=== PATIENT | male | born 1965 | race Caucasian/White ===

== ENCOUNTER → 2016-03-17 | Outpatient (CLI) | payer BC ==
--- NOTE | 2016-03-17 12:52 | CT ---
EXAMINATION TYPE: CT abdomen pelvis wo con DATE OF EXAM: 03/17/2016 12:29 PM COMPARISON: NONE HISTORY: Left sided flank pain with nausea and vomiting CT DLP: 367.7 mGycm Automated exposure control for dose reduction was used. TECHNIQUE: Helical acquisition of images from the lung bases through the pelvis. FINDINGS: LUNG BASES: No significant abnormality is appreciated. Small hiatal hernia may be present. AORTA: No significant abnormality is appreciated. LIVER/GB: No significant abnormality is appreciated. PANCREAS: No significant abnormality is seen. SPLEEN: No significant abnormality is seen. ADRENALS: No significant abnormality is seen. KIDNEYS: Right kidney shows a calcification at the anterior margin inferiorly which may be within a c eliseo measuring approximately 7 mm. There is no hydronephrosis on the right, on the left there is mild hydronephrosis as well as a proximal ureteral calculus measuring approximately 3 to 4 mm in diameter . REPRODUCTIVE ORGANS: No significant abnormality is seen. URINARY BLADDER: No significant abnormality is seen. BOWEL: Some minimal diverticular change, no bowel obstruction, the appendix is normal FREE AIR: No Free Air is visible. ASCITES: None visible. PELVIC ADENOPATHY: None visualized. RETROPERITONEAL ADENOPATHY: No Retroperitoneal Adenopathy visible. OSSEOUS STRUCTURES: Degenerative disc changes are present in the visualized lumbar spine, postop molly nge status post lumbar fusion L5-S1. IMPRESSION: PROXIMAL LEFT URETERAL CALCULUS WITH MILD HYDRONEPHROSIS. NONOBSTRUCTIVE RIGHT NEPHROLITHIASIS. NONCO NTRAST EXAM COULD LIMIT SENSITIVITY.
[2016-03-17 13:18] LABS: Appearance,Urine Clear (Clear); Bacteria,Urine Rare /hpf; Bilirubin,Urine Negative (Negative); Glucose,Urine (UA) Negative (Negative); Ketones,Urine Negative (Negative); Leukocyte Esterase,Urine Negative (Negative); Mucus,Urine Occasional /hpf; Nitrite,Urine Negative (Negative); PH, Urine 5.5 (5.0-8.0); Particle Count 2844; Protein,Urine Negative (Negative); RBC,Urine 1 /hpf (0-5); UA Billing (MACRO vs. MICRO) MICRO; Urobilinogen,Urine <2.0 mg/dL (<2.0); WBC,Urine 1 /hpf (0-5)
== END | disposition home or self-care (01) ==
LOC: RADCTMAIN 11:57
PROVIDERS: ATTEND Urology
DX: N13.2 Hydronephrosis with renal and ureteral calculous obstruction (principal)
CPT/HCPCS: 74176; 81001

== ENCOUNTER → 2016-04-09 | Outpatient (CLI) | payer BC ==
--- NOTE | 2016-04-09 09:47 | XR ---
Abdomen HISTORY: Kidney stone Correlation to prior CT abdomen pelvis dated 17 March 2016 Frontal view of the abdomen on 2 images The calcification at the lower pole of the right kidney is again seen and measures approximately 6 to 7 mm. Calcification within the proximal ureter on the left measuring only 2 [address] is not see n with certainty. Postop changes are noted to the lumbar sacral spine. Sclerotic focus noted within t he left ilium without cortical destruction. No pneumoperitoneum or bowel obstruction. Lung bases not entirely included on the exam. IMPRESSION: Calcification at the lower pole of the right kidney is stable. Left-sided ureteral calcif ication not seen.
--- NOTE | 2016-04-09 11:07 | US ---
EXAMINATION TYPE: US kidneys/renal and bladder DATE OF EXAM: 04/09/2016 8:20 AM COMPARISON: Correlation CT 03/17/2016 CLINICAL HISTORY: 50-year-old male N20.0 Renal Calculus, Ureteral Calculus N20.1. TECHNIQUE: Multiple sonographic images of the kidneys and bladder were obtained. FINDINGS: Right Kidney: 11.8 x 5.7 x 4.9cm cm without hydronephrosis. There is a 7 mm shadowing echogenic focu s in the lower pole. Left Kidney: 12.2 x 6.0 x 5.2 cm without hydronephrosis. No gross abnormality of the bladder. Both ureteral jets are visualized. Post Void Residual Volume: 28.5 mL IMPRESSION: 1. No hydronephrosis on either side. Both ureteral jets are visualized. 2. 7 mm nonobstructive right renal calculus. 3. Slightly elevated postvoid bladder volume (29 mL) but still falling within the normal range.
== END | disposition home or self-care (01) ==
LOC: RADUSWWP 07:44
PROVIDERS: ATTEND Urology
DX: N20.0 Calculus of kidney (principal); N28.89 Other specified disorders of kidney and ureter; Z96.0 Presence of urogenital implants
CPT/HCPCS: 74000; 76770